=== PATIENT | male | born 1995 ===

== ENCOUNTER 2017-02-09 22:08 | Emergency (ER) | payer BC, OTHER ==
[2017-02-09 22:28] VITALS: BP 146/88; PULSE 72; RESP 18; TEMP 99.3; O2SAT 99
--- NOTE | 2017-02-09 22:43 | ED PDOC ---
Lower Extremity Pain/Injury Time Seen by Provider: 02/09/17 22:29 Chief Complaint (Nursing): Lower Extremity Problem/Injury Chief Complaint (Provider): Ankle pain History Per: Patient Additional Complaint(s): Patient is a 21 yo male, no PMH, presents to ED for evaluation of right ankle pain and swelling. Pt twisted during soccer game. Patient has swelling ecchymosis and pain to dorsal and lateral side of foot. Past Medical History Reviewed: Nursing Documentation, Vital Signs Vital Signs: Last Vital Signs Temp 99.3 F 02/09/17 22:25 Pulse 72 02/09/17 22:25 Resp 18 02/09/17 22:25 BP 146/88 02/09/17 22:25 Pulse Ox 99 02/09/17 22:25 - Medical History PMH: Asthma Denies: Cardia Arrhythmia - Surgical History Surgical History: No Surg Hx - Family History Family History: States: Unknown Family Hx - Living Arrangements Living Arrangements: With Family - Social History Current smoker - smoking cessation education provided: No Alcohol: Social Drugs: Denies - Home Medications Home Medications: Ambulatory Orders Medication Instructions Recorded Polymyxin/Trimethoprim Sulfate 1 drop XX Q6H 10 Days 10/04/14 [Polytrim Ophth Soln] - Allergies Allergies/Adverse Reactions: Allergies Allergy/AdvReac Type Severity Reaction Status Date / Time No Known Allergies Allergy Unverified 10/04/14 19:40 Review of Systems ROS Statement: Except As Marked, All Systems Reviewed And Found Negative Musculoskeletal: Positive for: Foot Pain Physical Exam - Reviewed Nursing Documentation Reviewed: Yes Vital Signs Reviewed: Yes - Physical Exam Appears: Positive for: Well, Non-toxic, No Acute Distress Head Exam: Positive for: ATRAUMATIC, NORMAL INSPECTION, NORMOCEPHALIC Skin: Positive for: Normal Color, Warm, DRY Eye Exam: Positive for: EOMI, Normal appearance, PERRL ENT: Positive for: Normal ENT Inspection Neck: Positive for: Normal, Painless ROM Cardiovascular/Chest: Positive for: Regular Rate, Rhythm Respiratory: Positive for: CNT, Normal Breath Sounds Gastrointestinal/Abdominal: Positive for: Normal Exam, Bowel Sounds, Soft Back: Positive for: Normal Inspection Extremity: Positive for: Normal ROM, Tenderness, Swelling (above and below lateral malleolus). Negative for: Deformity Neurologic/Psych: Positive for: Alert, Oriented - ECG O2 Sat by Pulse Oximetry: 99 Medical Decision Making Medical Decision Making: Medicated with Motrin PO XR: NAD, as read by KATIE Placed in air cast and instructed in crutch walking by soil technologist Advised Rice therapy and podiatry visit Disposition - Clinical Impression Clinical Impression: Ankle injury, Ankle sprain and strain - Patient ED Disposition Is Patient to be Admitted: No - Disposition Referrals: Podiatry Clinic [Outside] Disposition: Routine/Home Disposition Time: 23:10 Condition: STABLE Instructions: Ankle Sprain (ED), RICE Therapy (ED) Forms: Loftware (Liberian) - POA Present On Arrival: None
--- NOTE | 2017-02-10 07:55 | RAD ---
PROCEDURE: Right Foot Radiographs. HISTORY: pain and swelling s/p twist injury COMPARISON: None. FINDINGS: BONES: Normal. No fracture. JOINTS: Normal. SOFT TISSUES: Normal. OTHER FINDINGS: None. IMPRESSION: Normal right foot radiographs.
--- NOTE | 2017-02-10 08:40 | RAD ---
HISTORY: pain and swelling s/p twist injury COMPARISON: No prior FINDINGS: BONES: Normal. No fracture. JOINTS: Normal. No osteoarthritis. SOFT TISSUE: Lateral ankle sprain. OTHER FINDINGS: None . IMPRESSION: Lateral ankle sprain.
== END 2017-02-09 23:54 | disposition home or self-care (01) ==
LOC: H.ER 22:08 → MERGE 22:08 → H.ER 23:54
DX: S93.401A Sprain of unspecified ligament of right ankle, initial encounter (principal); X50.9XXA Other and unspecified overexertion or strenuous movements or postures, initial encounter; Y92.322 Soccer field as the place of occurrence of the external cause; J45.909 Unspecified asthma, uncomplicated